=== PATIENT | female | born 1995 | race Caucasian/White ===

== ENCOUNTER 2021-03-13 20:05 | Emergency (ER) | payer SELFPAY ==
[2021-03-13 20:36] LABS: Bilirubin Negative (Negative); Blood, Urine Negative (Negative); Clarity Clear (Clear); Glucose, Urine (Dipstick) Negative (Negative); Ketone, Urine Negative (Negative); Leukocyte Negative (Negative); Nitrite Negative (Negative); Protein, Urine (Dipstick) Negative (Neg-Trace); Urobilinogen 0.2 mg/dL (Less than 2); pH, Urine 5.5 (5.0-9.0)
[2021-03-13 20:40] LABS: Pregnancy Test - Urine (BHCG) POSITIVE (Negative); Pregu Control Background? CLEAR/WHITE (CLR/WHITE); Pregu Control Bar Appear? YES (CONTROL BAR); Specific Gravity 1.018 (1.002-1.036)
[2021-03-13 20:41] LABS: Specific Gravity, Urine 1.018 (1.002-1.036)
== END 2021-03-13 20:58 | disposition home or self-care (01) ==
LOC: NAV ERS 20:05
DX: Z32.01 Encounter for pregnancy test, result positive (principal); K21.9 Gastro-esophageal reflux disease without esophagitis; F17.210 Nicotine dependence, cigarettes, uncomplicated
CPT/HCPCS: 81003; 81025; 99282

== ENCOUNTER 2023-07-12 19:27 | Emergency (ER) | payer MEDICAID, OTHER ==
[2023-07-12] MEDS ORDERED: HYDROcodone/Acetaminophen 5/325 mg Tablet ONE (19:43)
[2023-07-12] MEDS ORDERED: Ketorolac Tromethamine 30 MG (1 mL) VIAL ONE (19:43)
== END 2023-07-12 20:07 | disposition home or self-care (01) ==
LOC: NAV ERS 19:27
DX: H66.92 Otitis media, unspecified, left ear (principal); F17.210 Nicotine dependence, cigarettes, uncomplicated
CPT/HCPCS: 96372; 99283; J1885

== ENCOUNTER 2024-03-29 17:38 | Emergency (ER) | payer OTHER, SELFPAY | END 2024-03-29 19:15 | disposition home or self-care (01) | LOC: NAV ERS 17:38 | DX: S93.402A Sprain of unspecified ligament of left ankle, initial encounter (principal); M25.532 Pain in left wrist; M25.522 Pain in left elbow; F17.210 Nicotine dependence, cigarettes, uncomplicated; W10.9XXA Fall (on) (from) unspecified stairs and steps, initial encounter | CPT/HCPCS: 29125; 99283 ==

== ENCOUNTER 2024-06-03 09:50 | Emergency (ER) | payer MEDICAID, SELFPAY ==
[2024-06-03] MEDS ORDERED: Acetaminophen 325 MG TAB ONE (11:24)
== END 2024-06-03 12:15 | disposition home or self-care (01) ==
LOC: NAV ERS 09:50
DX: M79.671 Pain in right foot (principal); F17.210 Nicotine dependence, cigarettes, uncomplicated
CPT/HCPCS: 99283

== ENCOUNTER 2025-01-31 09:43 | Outpatient (CLI) | payer OTHER | END 2025-01-31 09:44 | disposition home or self-care (01) | LOC: NAV RAD 09:43 | PROVIDERS: ATTEND Dermatology | DX: L40.0 Psoriasis vulgaris (principal) | CPT/HCPCS: 71046 ==